=== PATIENT | female | born 1940 | race Caucasian/White ===

== ENCOUNTER 2019-02-22 09:37 | Inpatient (IN) | payer MEDICARE, MEDICAID ==
[~2019-02-22] VITALS: Ht 152.4 cm; Wt 55.3 kg
[2019-02-22] MEDS: SODIUM CHLORIDE 0.9% 1,000 ML IV SCH
[~2019-02-22 09:37] MED LIST: AMLO1CAP5 PO; ASA5EC PO; CIPR-263 PO; COLC0.6T66 PO; FOLI-43 PO; LIP40 PO; MELO-106 PO; METH2.5T PO; OMEP20CA10 PO
[2019-02-22] MEDS ORDERED: SODIUM CHLORIDE 0.9% 1,000 ML IV ONE (10:43)
[2019-02-22] MEDS ORDERED: MORPHINE SULFATE 4 MG/ML CPJ (NOT FOR IM USE) IV STA (10:43)
[2019-02-22] MEDS ORDERED: ONDANSETRON HCL 4MG/2ML INJ IV STA (10:43)
[2019-02-22 10:54] LABS: BASOPHILS % 1.1 % (0.0-2.0); HEMATOCRIT. 36.9 % (36.0-48.0); HEMOGLOBIN. 13.3 g/dL (12.0-16.0); LYMPHOCYTES % 11.5 % (20.0-50.0); MEAN CORPUSCULAR HEMOGLOBIN 31.6 pg (28.0-32.0); MEAN PLATELET VOLUME 6.4 fl (7.4-10.4); MONOCYTES % 8.7 % (2.0-8.0); NEUTROPHILS % 77.7 % (40.0-76.0); PLATELET 354 x1000/uL (130-400); RED CELL DISTRIBUTION WIDTH 13.2 % (11.6-14.6)
[2019-02-22 10:58] LABS: CHLORIDE 87 mEq/L (98-107)
[2019-02-22 11:04] LABS: D-DIMER 0.82 mg/L FEU (<0.50); PARTIAL THROMBOPLASTIN TIME 33.8 sec (23.4-31.0); PROTHROMBIN TIME 10.3 sec (9.6-11.0)
[2019-02-22 11:41] LABS: CLARITY URINE CLEAR (CLEAR); COLOR URINE YELLOW (YELLOW); KETONES URINE NEGATIVE (NEGATIVE); LEUKOCYTE ESTERASE URINE NEGATIVE (NEGATIVE); NITRITE URINE NEGATIVE (NEGATIVE); OCCULT BLOOD URINE NEGATIVE (NEGATIVE); PH URINE 7.5 (4.5-8.0); PROTEIN URINE NEGATIVE (NEGATIVE); SPECIFIC GRAVITY URINE 1.008 (1.005-1.030); UROBILINOGEN URINE 0.2 E.U./dL (0.2-1.0)
[2019-02-22] MEDS ORDERED: ASPIRIN 81MG TABLET PO ONE (13:30)
[2019-02-22] MEDS ORDERED: IOHEXOL-350 100 ML BOTTLE ONE (13:41)
[2019-02-22] MEDS ORDERED: ONDANSETRON HCL 4MG/2ML INJ IV PRN (15:00)
[2019-02-22] MEDS ORDERED: GUAIFENESIN 200MG/10ML SUGAR FREE UDC PO PRN (15:00)
[2019-02-22] MEDS ORDERED: HYDROCODONE/ACETAMINOPHEN 5/325MG TABLET PO PRN (15:00)
[2019-02-22] MEDS ORDERED: DOCUSATE SODIUM 100MG CAPSULE PO PRN (15:00)
[2019-02-22] MEDS ORDERED: IPRATROPIUM/ALBUTEROL 0.5-3(2.5)MG/3ML NEB INH PRN (15:00)
[2019-02-22] MEDS ORDERED: LORAZEPAM 0.5MG TABLET PO PRN (15:00)
[2019-02-22] MEDS ORDERED: CLONIDINE 0.1MG TABLET PO PRN (15:00)
[2019-02-22] MEDS ORDERED: MAGNESIUM/ALUMINUM HYDROXIDE/SIMETHICONE 30ML UDC PO PRN (15:00)
[2019-02-22] MEDS ORDERED: ACETAMINOPHEN 650MG SUPP PR PRN (15:00)
[2019-02-22] MEDS ORDERED: DIPHENHYDRAMINE 50MG/ML VIAL IV PRN (15:00)
[2019-02-22] MEDS ORDERED: NA PHOS,M-B/NA PHOS,DI-BA ENEMA 118ML PR PRN (15:00)
[2019-02-22] MEDS: AMLODIPINE 5MG TABLET PO SCH (15:15)
[2019-02-22 15:46] LABS: BG BASE EXCESS -2.1 mmol/L (-2.0-2.0); BG CARBOXYHEMOGLOBIN 0.7 % (0.5-1.5); BG DEOXYHEMOGLOBIN 2.1 % (0.0-5.0); BG FRACTION INSPIRED OXYGEN 21; BG HCO3 ACT 20.2 mmol/L (22.0-26.0); BG METHEMOGLOBIN 0.1 % (0.0-1.5); BG OXYGEN SATURATION 97.9 % (92.0-98.5); BG OXYHEMOGLOBIN 97.1 % (94.0-97.0); BG PCO2 28.2 mmHg (35.0-45.0); BG PH 7.474 (7.350-7.450); BG PO2 104.1 mmHg (75.0-100.0); BG SAMPLE SITE LEFT BRACHIAL; BG TOTAL HEMOGLOBIN 13.6 g/dL (12.0-18.0); BG VENT MODE ROOM AIR
[2019-02-22 18:28] LABS: CHLORIDE 94 mEq/L (98-107)
[2019-02-22] MEDS: ACETAMINOPHEN 325MG TABLET PO PRN (20:23)
[2019-02-22] MEDS ORDERED: FAMOTIDINE 20MG/2ML VIAL IV SCH (21:00)
[2019-02-22] MEDS: ENOXAPARIN 40MG/0.4ML SYR SUBCUT SCH (21:30)
[2019-02-23 00:16] LABS: CREATINE KINASE 362 IU/L (26-192)
[2019-02-23 00:17] LABS: CREATINE KINASE MB FRACTION 6.5 ng/mL (0.5-3.6)
[2019-02-23 04:12] VITALS: BP 126/80
[2019-02-23 05:47] LABS: BASOPHILS % 0.8 % (0.0-2.0); EOSINOPHILS % 1.1 % (0.0-5.0); HEMATOCRIT. 35.6 % (36.0-48.0); HEMOGLOBIN. 12.8 g/dL (12.0-16.0); MEAN CORPUSCULAR HEMOGLOBIN 31.9 pg (28.0-32.0); MEAN CORPUSCULAR VOLUME 88.9 fL (81.0-99.0); MEAN PLATELET VOLUME 6.4 fl (7.4-10.4); MONOCYTES % 9.4 % (2.0-8.0); NEUTROPHILS % 72.7 % (40.0-76.0); PLATELET 333 x1000/uL (130-400); RED BLOOD CELL COUNT 4.01 mill/uL (4.2-5.4); RED CELL DISTRIBUTION WIDTH 13.4 % (11.6-14.6)
[2019-02-23 07:28] LABS: METHADONE URINE SCREEN NEGATIVE (NEGATIVE); OPIATES URINE SCREEN NEGATIVE (NEGATIVE); PHENCYCLIDINE URINE SCREEN NEGATIVE (NEGATIVE)
[2019-02-23 07:29] LABS: *AMPHETAMINES SCREEN URINE NEGATIVE (NEGATIVE); *BARBITURATES SCREEN URINE NEGATIVE (NEGATIVE); *BENZODIAZEPINES SCREEN URINE NEGATIVE (NEGATIVE); *COCAINE SCREEN URINE NEGATIVE (NEGATIVE); CANNABINOID URINE SCREEN NEGATIVE (NEGATIVE)
[2019-02-23] MEDS: ASPIRIN 81MG EC TABLET PO SCH (08:37)
[2019-02-23 08:38] LABS: CHLORIDE 96 mEq/L (98-107)
[2019-02-23] MEDS: AMLODIPINE 5MG TABLET PO SCH (08:38)
[2019-02-23] MEDS: ACETAMINOPHEN 325MG TABLET PO PRN ×2 (08:41→15:11)
[2019-02-23 08:46] LABS: LDL CHOLESTEROL 63 mg/dL (5-100)
[2019-02-23 08:47] LABS: CREATINE KINASE MB FRACTION 4.7 ng/mL (0.5-3.6); HDL CHOLESTEROL 57 mg/dL (40-59)
[2019-02-23 08:48] LABS: CREATINE KINASE 277 IU/L (26-192); T4 FREE 1.33 ng/dL (0.76-1.46)
[2019-02-23] MEDS: SODIUM CHLORIDE 0.9% 1,000 ML IV SCH (18:28)
[2019-02-23 20:00] VITALS: BP 129/68
[2019-02-23] MEDS: ENOXAPARIN 40MG/0.4ML SYR SUBCUT SCH (20:14)
[2019-02-23 22:00] VITALS: BP 131/67
[2019-02-24] VITALS (12 sets, daily range): BP systolic 100–162; BP diastolic 37–87
[2019-02-24] MEDS: ASPIRIN 81MG EC TABLET PO SCH (08:45)
[2019-02-24] MEDS: AMLODIPINE 5MG TABLET PO SCH (08:45)
[2019-02-24] MEDS ORDERED: FAMOTIDINE 20MG TABLET PO SCH (09:00)
[2019-02-24] MEDS: SODIUM CHLORIDE 0.9% 1,000 ML IV SCH (09:16)
== END 2019-02-24 21:00 | disposition home health service (06) | DRG 640 ==
LOC: ER 09:41 → EDBEDREQ 10:54 → EDBEDREQSVC 12:32 → EDBEDREQ 12:32 → 5EST 13:16 → EDBEDREQ 13:21 → ENRESERV 19:41
PROVIDERS: ADMIT Internal Medicine; ATTEND Internal Medicine
DX: E87.1 Hypo-osmolality and hyponatremia (principal); I50.33 Acute on chronic diastolic (congestive) heart failure; E78.5 Hyperlipidemia, unspecified; M19.90 Unspecified osteoarthritis, unspecified site; K21.9 Gastro-esophageal reflux disease without esophagitis; I11.0 Hypertensive heart disease with heart failure; K80.20 Calculus of gallbladder without cholecystitis without obstruction; Z86.73 Personal history of transient ischemic attack (TIA), and cerebral infarction without residual deficits; Z87.440 Personal history of urinary (tract) infections; Z91.048 Other nonmedicinal substance allergy status
CPT/HCPCS: 36415; 36600; 71045; 71275; 74176; 80048; 80061; 80305; 82375; 82533; 82550; 82553; 82805; 83880; 84439; 84443; 84484; 85379; 93005; 93306; 93970; 96374; 96375; 97162; 99285; J1650; J2270; J2405; J3490; J7030; J7040; Q9967